=== PATIENT | male | born 1990 | race African-American/Black ===

== ENCOUNTER 2022-11-17 18:15 | Emergency (ER) | payer OTHER ==
[~2022-11-17] VITALS: Ht 175.3 cm; Wt 99.3 kg
[2022-11-17] MEDS ORDERED: IPRAT-ALBUT 0.5-3 ML IH (22:33)
== END 2022-11-17 22:35 | disposition home or self-care (01) ==
LOC: ER 18:15
DX: J45.901 Unspecified asthma with (acute) exacerbation (principal); Z20.822 Contact with and (suspected) exposure to COVID-19

== ENCOUNTER 2022-12-06 10:12 | Emergency (ER) | payer OTHER ==
[~2022-12-06] VITALS: Ht 172.7 cm; Wt 77.1 kg
[~2022-12-06 10:12] MED LIST: IPRAT-ALBUT 0.5-3 ML IH
== END 2022-12-06 16:30 | disposition home or self-care (01) ==
LOC: ER 10:12
DX: J45.901 Unspecified asthma with (acute) exacerbation (principal)

== ENCOUNTER 2023-02-01 13:04 | Emergency (ER) | payer OTHER ==
[~2023-02-01] VITALS: Ht 165.1 cm; Wt 65.8 kg
== END 2023-02-01 22:18 | disposition home or self-care (01) ==
LOC: ER 13:04
DX: J45.909 Unspecified asthma, uncomplicated (principal); R06.02 Shortness of breath; Z88.2 Allergy status to sulfonamides

== ENCOUNTER 2023-02-02 09:16 | Emergency (ER) | payer OTHER ==
[~2023-02-02] VITALS: Ht 165.1 cm; Wt 65.8 kg
== END 2023-02-02 15:23 | disposition home or self-care (01) ==
LOC: ER 09:16
DX: J45.909 Unspecified asthma, uncomplicated (principal); Z20.822 Contact with and (suspected) exposure to COVID-19; Z88.2 Allergy status to sulfonamides

== ENCOUNTER 2023-02-04 20:01 | Emergency (ER) | payer OTHER ==
[~2023-02-04] VITALS: Ht 172.7 cm; Wt 64.0 kg
== END 2023-02-05 03:51 | disposition home or self-care (01) ==
LOC: ER 20:01
DX: J45.909 Unspecified asthma, uncomplicated (principal); R06.02 Shortness of breath; Z88.2 Allergy status to sulfonamides; Z20.822 Contact with and (suspected) exposure to COVID-19

== ENCOUNTER 2023-02-08 06:34 | Emergency (ER) | payer OTHER ==
[~2023-02-08] VITALS: Ht 172.7 cm; Wt 65.8 kg
== END 2023-02-08 10:09 | disposition home or self-care (01) ==
LOC: ER 06:34
DX: J45.901 Unspecified asthma with (acute) exacerbation (principal); Z88.8 Allergy status to other drugs, medicaments and biological substances

== ENCOUNTER → 2023-02-12 | Emergency (ER) | payer OTHER ==
[~2023-02-12] VITALS: Ht 172.7 cm; Wt 63.5 kg
[~2023-02-12] MED LIST changes: +ALBUTEROL2.5 MG/3 M IH; +PROVENTIL HFA6.7 GM IH; +TRELEGY ELLIPT1 EAC1 IH
== END | disposition left against medical advice (07) ==
LOC: ER 20:49
DX: J45.909 Unspecified asthma, uncomplicated (principal); Z88.8 Allergy status to other drugs, medicaments and biological substances

== ENCOUNTER 2023-02-14 01:00 | Emergency (ER) | payer OTHER ==
[~2023-02-14] VITALS: Ht 172.7 cm; Wt 68.0 kg
[~2023-02-14 01:00] MED LIST changes: -ALBUTEROL2.5 MG/3 M IH; -PROVENTIL HFA6.7 GM IH; -TRELEGY ELLIPT1 EAC1 IH
[2023-02-14] MEDS ORDERED: PROVENTIL HFA6.7 GM IH (03:57)
[2023-02-14] MEDS ORDERED: ALBUTEROL2.5 MG/3 M IH (03:57)
[2023-02-14] MEDS ORDERED: TRELEGY ELLIPT1 EAC1 IH (04:03)
== END 2023-02-14 04:06 ==
LOC: ER 01:00
DX: J45.901 Unspecified asthma with (acute) exacerbation (principal); J45.909 Unspecified asthma, uncomplicated

== ENCOUNTER 2023-02-17 19:37 | Emergency (ER) | payer OTHER ==
[~2023-02-17] VITALS: Ht 175.3 cm; Wt 90.7 kg
[~2023-02-17 19:37] MED LIST changes: +ALBUTEROL2.5 MG/3 M IH; +PROVENTIL HFA6.7 GM IH; +TRELEGY ELLIPT1 EAC1 IH
[2023-02-17] MEDS ORDERED: PULMICORT FLEX90 MCG IH (21:49)
== END 2023-02-17 22:45 | disposition home or self-care (01) ==
LOC: ER 19:37
DX: J45.901 Unspecified asthma with (acute) exacerbation (principal)

== ENCOUNTER → 2023-03-01 | Emergency (ER) | payer OTHER ==
[~2023-03-01] VITALS: Ht 172.7 cm; Wt 104.3 kg
[~2023-03-01] MED LIST changes: +PULMICORT FLEX90 MCG IH
== END | disposition left against medical advice (07) ==
LOC: ER 22:35
DX: Z53.21 Procedure and treatment not carried out due to patient leaving prior to being seen by health care provider (principal)

== ENCOUNTER 2023-03-03 23:06 | Emergency (ER) | payer OTHER ==
[~2023-03-03] VITALS: Ht 172.7 cm; Wt 67.6 kg
== END 2023-03-04 05:25 | disposition home or self-care (01) ==
LOC: ER 23:06
DX: J45.998 Other asthma (principal)

== ENCOUNTER 2023-03-07 23:51 | Emergency (ER) | payer OTHER ==
[~2023-03-07] VITALS: Ht 172.7 cm; Wt 85.3 kg
== END 2023-03-08 09:07 | disposition home or self-care (01) ==
LOC: ER 23:51
DX: J45.998 Other asthma (principal)

== ENCOUNTER → 2023-03-16 | Emergency (ER) | payer OTHER ==
[~2023-03-16] VITALS: Ht 172.7 cm; Wt 63.0 kg
== END | disposition left against medical advice (07) ==
LOC: ER 16:32
DX: Z53.21 Procedure and treatment not carried out due to patient leaving prior to being seen by health care provider (principal)

== ENCOUNTER 2023-03-17 18:11 | Emergency (ER) | payer OTHER ==
[~2023-03-17] VITALS: Ht 152.4 cm; Wt 63.5 kg
== END 2023-03-17 21:45 | disposition home or self-care (01) ==
LOC: ER 18:11
DX: J45.998 Other asthma (principal); Z88.0 Allergy status to penicillin